=== PATIENT | male | born 1985 | race African-American/Black ===

== ENCOUNTER 2020-01-04 05:00 | Emergency (ER) | payer OTHER ==
[~2020-01-04] VITALS: Ht 175.3 cm; Wt 72.6 kg
[2020-01-04 05:06] VITALS: BP 125/82
[2020-01-04] MEDS ORDERED: OLANZapine 5 MG ODT SL ONE (06:00)
[2020-01-04 06:23] VITALS: BP 125/82
== END 2020-01-04 05:03 | disposition left against medical advice (07) ==
LOC: MED 05:00
DX: F20.9 Schizophrenia, unspecified (principal); F12.90 Cannabis use, unspecified, uncomplicated
CPT/HCPCS: 99283

== ENCOUNTER 2022-01-09 21:06 | Emergency (ER) | payer OTHER ==
[~2022-01-09] VITALS: Ht 177.8 cm; Wt 81.6 kg
[2022-01-09 21:06] VITALS: BP 140/86
--- NOTE | 2022-01-09 21:12 | NUR ---
[facility] CHAIR A
--- NOTE | 2022-01-09 22:01 | NUR ---
Dr. Harvey examining patient.
--- NOTE | 2022-01-09 22:07 | NUR ---
36 Y/O MALE BIBA FOUND IN [facility] [place], HEARING VOICES, DENIES, HURTING HIMSELF, AND OTHERS. A/OX4, UNLABORED BREATHING, AMBULATORY. DENIES SI/HI. DENIES PMH/RX NKA
[2022-01-09 22:17] VITALS: BP 136/80
--- NOTE | 2022-01-09 22:17 | NUR ---
Patient discharged with v/s stable. Written and verbal after care instructions given and explained. Patient verbalized understanding. Ambulatory with steady gait. All questions addressed prior to discharge. Advised to follow up with PMD. VSS, A/OX4, UNLABORED BREATHING, AMBULATORY, AND CALM DEMEANOR.
== END 2022-01-09 22:17 | disposition home or self-care (01) ==
LOC: MED 21:06
DX: R44.3 Hallucinations, unspecified (principal); Z00.8 Encounter for other general examination
CPT/HCPCS: 99283